=== PATIENT | male | born 1945 | race Caucasian/White ===

== ENCOUNTER 2016-07-31 14:09 | Emergency (ER) | payer MEDICARE ==
[2016-07-31 14:50] VITALS: BP 115/69
--- NOTE | 2016-07-31 15:06 | RAD ---
INDICATION: Left fifth finger injury. TECHNIQUE: 3 views of the left fifth finger were obtained. FINDINGS: The middle phalanx is subluxed posterior and medial relative to the proximal phalanx. No acute fracture is seen. There is an old healed boxer's fracture of the fifth metacarpal. IMPRESSION: SUBLUXATION OF THE PROXIMAL INTERPHALANGEAL JOINT.
--- NOTE | 2016-07-31 16:34 | RAD ---
INDICATION: Right fifth finger subluxation status post reduction. COMPARISON: Comparison is made with the prereduction films of the same day. TECHNIQUE: 3 views of the right fifth finger were obtained. FINDINGS: The bones are in normal alignment. There has been interval reduction of the previously noted subluxation of the proximal interphalangeal joint. No acute fracture is seen. There is an old healed boxer's fracture of the fifth metacarpal. 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 IMPRESSION: STATUS POST EXTERNAL REDUCTION. THE BONES ARE IN NORMAL ALIGNMENT.
--- NOTE | 2016-07-31 18:39 | ED ---
Elmer Pittman Alok, scribed for Dharmesh Denson MD on 07/31/16 at 1436 . Adult Trauma - HPI Summary HPI Summary: 71M presents to the ED BIBA following fall off of ladder. Pt was reportedly on a ladder indoors when he lost his balance reportedly falling 3 feet to the ground. Pt states he landed on his back and hit the back of his head on a plastic surface. Pt notes right elbow pain and right 5th finger pain. Pt denies neck pain or LOC. - History of Current Complaint Chief Complaint: EDTraumaMultiple Stated Complaint: FALL 12 FEET Time Seen by Provider: 07/31/16 14:25 Hx Obtained From: Patient Mechanism of Injury: Fall Ambulatory at the Scene: Yes Loss of Consciousness: no loss of consciousness Onset/Duration: Traumatic, Still Present Onset of Pain: Immediate Onset Severity: Moderate Current Severity: Moderate Pain Intensity: 7 Pain Scale Used: 0-10 Numeric Location: Head, Extremities Aggravating Factor(s): Nothing Alleviating Factor(s): Nothing Associated Signs & Symptoms: Negative: Loss of Consciousness - Allergy/Home Medications Allergies/Adverse Reactions: Allergies Allergy/AdvReac Type Severity Reaction Status Date / Time No Known Allergies Allergy Verified 04/12/12 07:56 PMH/Surg Hx/FS Hx/Imm Hx Endocrine/Hematology History: Denies: Hx Anticoagulant Therapy, Hx Diabetes, Hx Thyroid Disease Cardiovascular History: Denies: Hx Hypertension, Hx Pacemaker/ICD Respiratory History: Denies: Hx Asthma, Hx Chronic Obstructive Pulmonary Disease (COPD) History: Denies: Hx Renal Disease Neurological History: Denies: Hx Dementia, Hx Seizures Psychiatric History: Denies: Hx Substance Abuse - Immunization History Date of Tetanus Vaccine: 2006 Infectious Disease History: No Infectious Disease History: Denies: Hx Hepatitis, Hx Human Immunodeficiency Virus (HIV), Traveled Outside the [place] in Last 30 Days - Family History Known Family History: Negative: Cardiac Disease, Hypertension, Diabetes - Social History Occupation: Employed Full-time Lives: With Family Substance Use Type: Reports: None Review of Systems Negative: Fever Positive: Other - right elbow and right 5th finger pain. Negative: Neck pain All Other Systems Reviewed And Are Negative: Yes Physical Exam Triage Information Reviewed: Yes Vital Signs On Initial Exam: Initial Vitals Temp Pulse Resp BP Pulse Ox 97.4 F 59 18 117/65 100 07/31/16 14:15 07/31/16 14:15 07/31/16 14:15 07/31/16 14:15 07/31/16 14:15 Vital Signs Reviewed: Yes Appearance: Positive: Well-Appearing, No Pain Distress Skin: Positive: Warm, Skin Color Reflects Adequate Perfusion, Dry Head/Face: Positive: Normal Head/Face Inspection Eyes: Positive: Normal ENT: Positive: Normal ENT inspection Neck: Positive: Supple, Nontender Respiratory/Lung Sounds: Positive: Clear to Auscultation, Breath Sounds Present Cardiovascular: Positive: RRR Abdomen Description: Positive: Nontender, Soft Bowel Sounds: Positive: Present Musculoskeletal: Positive: Other - right hand 5th finger PIP dislocation with valve varus deformity Neurological: Positive: Normal Psychiatric: Positive: Normal, Affect/Mood Appropriate Diagnostics - Vital Signs Vital Signs Temp Pulse Resp BP Pulse Ox 07/31/16 14:18 97.8 F 59 17 117/65 100 07/31/16 14:15 97.4 F 59 18 117/65 100 - Laboratory Lab Statement: Any lab studies that have been ordered have been reviewed, and results considered in the medical decision making process. - Radiology Finger XRAY Xray Interpretation: Positive (See Comments) - IMPRESSION: SUBLUXATION OF THE PROXIMAL INTERPHALANGEAL JOINT. Radiology Interpretation Completed By: Radiologist Finger XRAY (Post Reduction) Xray Interpretation: Positive (See Comments) - IMPRESSION: STATUS POST EXTERNAL REDUCTION. THE BONES ARE IN NORMAL ALIGNMENT. Radiology Interpretation Completed By: Radiologist Adult Trauma Course/Dx - Course Course Of Treatment: Mr. Donis fell off a ladder he was using to nail on a twelve foot ceiling. He sat hard and hit his right hadn dislocating his 5th finger. He took one look at it and got pale and diaphoretic. His W/U here revealed only some minor laceerations and the PIP dislocation without fracture of his right 5th finger. He was digitally blocked with 25% bupivicaine (2 cc's ) and the finger was reduced easily after anesthesia. He was domingo taped and D/ C'd in stable condition. - Diagnoses Provider Diagnoses: Dislocation, finger closed, Abrasions of multiple sites Discharge - Discharge Plan Condition: Stable Disposition: HOME Patient Education Materials: Finger Dislocation (ED) Referrals: Mina Grant MD [Primary Care Provider] - The documentation as recorded by the scribElmer white Alok accurately reflects the service I personally performed and the decisions made by me, Dharmesh Denson MD.
== END 2016-07-31 17:00 | disposition home or self-care (01) ==
LOC: ED 14:09
DX: S63.259A Unspecified dislocation of unspecified finger, initial encounter (principal); S50.311A Abrasion of right elbow, initial encounter; W11.XXXA Fall on and from ladder, initial encounter; Y93.9 Activity, unspecified; Y92.9 Unspecified place or not applicable; Y99.9 Unspecified external cause status
CPT/HCPCS: 73140; 99283

== ENCOUNTER 2018-07-23 01:31 | Inpatient (IN) | payer MEDICARE ==
[2018-07-23] MEDS ORDERED: Diltiazem IV push/loading dose 5 MG/ML 5 ML vial (25 mg) IV SLOW PU ONE ×2 (02:04→05:01)
[2018-07-23] MEDS ORDERED: NS 0.9% 1000 ML** 1,000 ML IV ONE (02:04)
[2018-07-23] MEDS ORDERED: Aspirin 81 mg CHEW TAB* 81 MG TAB.CHEW PO ONE (02:04)
--- NOTE | 2018-07-23 02:09 | ED ---
HPI Cardiac - HPI Summary HPI Summary: Patient is a 73 y/o M presenting to ED with complaints of palpitations. Palpitations are characterized as "racing" and he reports that palpitations have been present intermittently for the past two weeks. He notes some dizziness and SOB with palpitations. He also states that he has been getting panic attacks at night, stating that when he lies down it feels like something is "choking my throat". Patient notes a few days ago he became SOB and experienced palpations while running and that he was not able to run more than 1 /4 of a mile. He states that he runs around 4 miles regularly. He denies any daily medications, alcohol and substances usage. Patient is a non-smoker. No pain at present. On triage, pain is denied, nothing is noted to aggravate/ alleviate Sx. Home medications and allergies are reviewed. - History of Current Complaint Stated Complaint: RAPID HR PER PT Hx Obtained From: Patient Onset/Duration: Started Weeks Ago - a couple weeks ago Timing: Intermittent - a couple weeks ago Current Severity: None - pain denied Pain Intensity: 0 Pain Scale Used: 0-10 Numeric Character: Fast - "racing" Aggravating Factor(s): Nothing Alleviating Factor(s): Nothing Associated Signs and Symptoms: Positive: Dizziness, Shortness of Breath - Allergy/Home Medications Allergies/Adverse Reactions: Allergies Allergy/AdvReac Type Severity Reaction Status Date / Time No Known Allergies Allergy Verified 07/23/18 01:34 Home Medications: Home Medications Ciprofloxacin TAB* [Cipro 500 MG TAB*] 1 tab PO BID 07/23/18 [History Confirmed 07/23/18] PMH/Surg Hx/FS Hx/Imm Hx Endocrine/Hematology History: Denies: Hx Anticoagulant Therapy, Hx Diabetes, Hx Thyroid Disease Cardiovascular History: Denies: Hx Hypertension, Hx Pacemaker/ICD Respiratory History: Denies: Hx Asthma, Hx Chronic Obstructive Pulmonary Disease (COPD) History: Denies: Hx Renal Disease Neurological History: Denies: Hx Dementia, Hx Seizures Psychiatric History: Denies: Hx Substance Abuse - Immunization History Date of Tetanus Vaccine: 2006 Infectious Disease History: No Infectious Disease History: Denies: Hx Hepatitis, Hx Human Immunodeficiency Virus (HIV), Traveled Outside the [place] in Last 30 Days - Family History Known Family History: Negative: Cardiac Disease, Hypertension, Diabetes - Social History Alcohol Use: Occasionally Substance Use Type: Reports: None Smoking Status (MU): Former Smoker Review of Systems Constitutional: Other - positive - dizziness Positive: Palpitations Positive: Shortness Of Breath All Other Systems Reviewed And Are Negative: Yes Physical Exam - Summary Physical Exam Summary: VITAL SIGNS: Reviewed. GENERAL: Patient is a well-developed and nourished male who is lying comfortable in the stretcher. Patient is not in any acute respiratory distress. HEAD AND FACE: No signs of trauma. No ecchymosis, hematomas or skull depressions. No sinus tenderness. EYES: PERRLA, EOMI x 2, No injected conjunctiva, no nystagmus. EARS: Hearing grossly intact. Ear canals and tympanic membranes are within normal limits. MOUTH: Oropharynx within normal limits. NECK: Supple, trachea is midline, no adenopathy, no JVD, no carotid bruit, no c- spine tenderness, neck with full ROM CHEST: Symmetric, no tenderness at palpation LUNGS: Clear to auscultation bilaterally. No wheezing or crackles. CVS: irregularly tachycardic, S1 and S2 present, no murmurs or gallops appreciated. ABDOMEN: Soft, non-tender. No signs of distention. No rebound no guarding, and no masses palpated. Bowel sounds are normal. EXTREMITIES: FROM in all major joints, no edema, no cyanosis or clubbing. NEURO: Alert and oriented x 3. No acute neurological deficits. Speech is normal and follows commands. SKIN: Dry and warm Triage Information Reviewed: Yes Vital Signs On Initial Exam: Initial Vitals Temp Pulse Resp BP Pulse Ox 97.2 F 65 17 139/90 100 07/23/18 01:32 07/23/18 01:32 07/23/18 01:32 07/23/18 01:32 07/23/18 01:32 Vital Signs Reviewed: Yes Diagnostics - Vital Signs Vital Signs Temp Pulse Resp BP Pulse Ox 07/23/18 01:32 97.2 F 65 17 139/90 100 - Laboratory Result Diagrams: 07/23/18 02:13 07/23/18 02:13 Lab Statement: Any lab studies that have been ordered have been reviewed, and results considered in the medical decision making process. - Radiology CXR Radiology Interpretation Completed By: ED Physician Summary of Radiographic Findings: CXR: bilateral increased markings, pending official report. - CT CTA CHEST/THORAX CT Interpretation Completed By: Radiologist Summary of CT Findings: CTA CHEST/THORAXIMPRESSION: 1. No pulmonary emboli. 2. Groundglass centrilobular nodules with intralobular septal thickening,. particularly in the right upper lobe, which may be due to atypical pneumonia. 3. Small right pleural effusion. 4. Cardiomegaly with evidence of right cardiac dysfunction. THIS REPORT WAS REVIEWED BY DR. ZHENG. - EKG 0200 Cardiac Rate: Other Rate - afib with rate of 117 BPM EKG Rhythm: Atrial Fibrillation Summary of EKG Findings: EKG showed afib with rate of 117 BPM, ST wave inversion in inferior leads. Disposition - Course Course Of Treatment: Patient is a 73 y/o M presenting to ED with complaints of palpitations. Palpitations are characterized as "racing" and he reports that palpitations have been present intermittently for the past two weeks. He notes some dizziness and SOB with palpitations. He also states that he has been getting panic attacks at night, stating that when he lies down it feels like something is "choking my throat". Patient notes a few days ago he became SOB and experienced palpations while running and that he was not able to run more than 1/4 of a mile. He states that he runs around 4 miles regularly. He denies any daily medications, alcohol and substances usage. Patient is a non-smoker. No pain at present. On physical exam, patient is noted to be irregularly tachycardic. EKG showed afib with rate of 117 BPM, ST wave inversion in inferior leads. CXR: Bilateral increased markings. CTA CHEST/THORAXIMPRESSION: 1. No pulmonary emboli. 2. Groundglass centrilobular nodules with intralobular septal thickening,. particularly in the right upper lobe, which may be due to atypical pneumonia. 3. Small right pleural effusion. 4. Cardiomegaly with evidence of right cardiac dysfunction. Labs showed Hgb 13.4, Hct 40, MCV 95, MCH 32, INR 1.23, D-dimer 355, BUN 26, BUN/creatinine ratio 23, glucose 104, AST 141, ALT 181, trop 0.01, BNP 466, total protein 6.1. During ED course, patient received fluids, diltiazem 20 mg IV SLOW PU ED, ASA 324 mg PO ED. 0507 - Patient's case was discussed with Dr. Hylton, Dr. Hylton accepts for admission. - Diagnoses Provider Diagnoses: A-fib - Physician Notifications Discussed Care Of Patient With: Neena Hylton Time Discussed With Above Provider: 05:07 Instructed by Provider To: Other - 0507 - Patient's case was discussed with Dr. Hylton, Dr. Hylton accepts for admission. Discharge - Sign-Out/Discharge Documenting (check all that apply): Patient Departure - admit - Discharge Plan Condition: Good Disposition: ADMITTED TO [facility] Referrals: Alisha Peace MD [Primary Care Provider] - - Attestation Statements Document Initiated by Scribe: Yes Documenting Scribe: YARI VANN Provider For Whom Scribe is Documenting (Include Credential): DAYANARA ZHENG MD Scribe Attestation: YARI Pittman, scribed for DAYANARA ZHENG MD on 07/23/18 at 0512. Status of Scribe Document: Ready
[2018-07-23 02:21] LABS: ABS Eosinophils 0.1 10^3/ul (0-0.6); ABS Lymphocytes 1.2 10^3/ul (1.0-4.8); ABS Monocytes 0.3 10^3/ul (0-0.8); ABS Neutrophils 3.1 10^3/ul (1.5-7.7); Hematocrit 40 % (42-52); Hemoglobin 13.4 g/dL (14.0-18.0); Lymphocyte % 24.9 %; Mean Corpuscular HGB Conc 34 g/dL (31-36); Mean Corpuscular Hemoglobin 32 pg (27-31); Mean Corpuscular Volume 95 fL (80-94); Mean Platelet Volume 9.2 fL (7.4-10.4); Platelet Count 175 10^3/uL (150-450); Red Cell Distribution Width 14 % (10-15); White Blood Count 4.7 10^3/uL (3.5-10.8)
[2018-07-23 02:29] LABS: Activated Partial Thrombo Time 34.9 seconds (26.0-38.0); INR 1.23 (0.82-1.09)
[2018-07-23 02:37] LABS: Albumin 3.8 g/dL (3.2-5.2); Albumin/Globulin Ratio 1.7 (1-3); EGFR African American 77.2 (>60); EGFR Non-African American 63.8 (>60); Globulin 2.3 g/dL (2-4); Magnesium 2.1 mg/dL (1.9-2.7); Potassium 4.7 mmol/L (3.5-5.0); Total Bilirubin 0.7 mg/dL (0.2-1.0); Total Protein 6.1 g/dL (6.4-8.9)
[2018-07-23 02:39] LABS: Troponin I 0.01 ng/mL (<0.04)
[2018-07-23] MEDS ORDERED: Iodixanol* (CONTRAST) 320 MG/ML 100 ML SDV IV ONE (02:51)
[2018-07-23 03:16] LABS: TSH (Thyroid Stimulating Horm) 3.99 mcIU/mL (0.34-5.60)
[2018-07-23] MEDS ORDERED: Acetaminophen TAB* 325 MG PO PRN (05:05)
[2018-07-23] MEDS ORDERED: Furosemide IV* 10 MG/ML VIAL (40 MG) IV ONE (05:09)
[2018-07-23] MEDS ORDERED: Metoprolol Tartrate IV* 1 MG/ML 5 ML VIAL IV PRN (05:10)
[2018-07-23] MEDS ORDERED: Ondansetron INJ* 2 MG/ML VIAL IV PRN (05:11)
[2018-07-23 05:22] LABS: HDL Cholesterol 44.3 mg/dL
[2018-07-23 05:47] LABS: Folate 13.79 ng/mL (>3.99)
[2018-07-23] MEDS ORDERED: Enoxaparin(*) 80 MG/0.8 ML SYR SUBCUT SCH (06:00)
[2018-07-23] MEDS: Diltiazem TAB* 30 MG PO SCH ×3 (06:40→17:27)
--- NOTE | 2018-07-23 09:24 | HP ---
HISTORY AND PHYSICAL: DATE OF ADMISSION: 07/23/18 PRIMARY CARE PROVIDER: Dr. Alisha Peace. EKG TECH: Dorene Donis, patient's . CHIEF COMPLAINT: Palpitations. CODE STATUS: DNR. SOURCE OF INFORMATION: HPI is obtained from the patient. He is an excellent historian. HISTORY OF PRESENT ILLNESS: This is a 73-year-old male with a past medical history of prostate cancer, status post prostatectomy; distant local melanoma, status post excision who, presents with complaint of palpitations over 2 weeks. Patient reports that he has had this sensation of his heart is racing intermittently for 2 weeks. It has been accompanied with shortness of breath and dizziness. They come and go. These episodes then last several minutes, but he is able to go about his day and do his activities of daily living. Over the last 7 days, he has had worsening sensation of shortness of breath, particularly when lying flat and has had several instances of orthopnea and paroxysmal nocturnal dyspnea where he wakes from sleep gasping for breath. Because of these persistent symptoms that did not seem to angel with any maneuvers, patient decided to present to the emergency room. At baseline, patient is quite healthy and is able to run 4 miles a day and he reports that for the last 2 weeks, he has been unable to run more than a quarter of a mile secondary to shortness of breath. He denies any josue chest pain during these events and has no other associated symptoms. No syncope and no dizziness. EMERGENCY ROOM COURSE: Vital signs on arrival, blood pressure of 139/90, pulse rate 70, sinus initially, temperature 97.2, respiratory rate 17, satting 100% on room air. Once in the emergency room and placed on the monitor, he had tachycardia to the one teens and an EKG showed atrial fibrillation with ventricular rate with T- wave inversions in 2, 3. Labs were drawn, which showed macrocytosis without anemia and elevated D-dimer of 355, elevated AST and ALT and a BNP of 466. A chest x-ray showed prominent vasculature bilaterally. A CTA was also completed to rule out pulmonary embolism, which by wet read was negative, although official report is still pending at the time of dictation. In the emergency room, he received diltiazem 20 mg with good effect , aspirin 324 and 1 L of IV fluid bolus. Because of these persistent symptoms of new AFib, the hospitalist team was asked to evaluate and admit this patient for further workup. PAST MEDICAL HISTORY: 1. Prostate cancer, status post prostatectomy. 2. Distant history of melanoma, status post excision. PAST SURGICAL HISTORY: 1. Status post prostatectomy. 2. Bilateral rotator cuff repair. 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 He lives with his . Tobacco: He is a current oral tobacco user with dips and has been for 20 years. Alcohol: Has abstained for the last 15 years. In the past with distant alcohol use disorder. Illicits : Never. FAMILY HISTORY: Positive for father who had prostate cancer and mother who is healthy. ALLERGIES: None. MEDICATIONS: None. REVIEW OF SYSTEMS: Constitutional: Negative for fever or chills. HEENT: Negative for vision changes, headaches, or sore throat. Cardiovascular: Positive for palpitations, orthopnea, or paroxysmal nocturnal dyspnea and negative for chest pain. Respiratory: Positive for shortness of breath. Negative for cough, pleuritic chest pain. GI: Negative for nausea, vomiting, diarrhea, or abdominal pain. : Negative for dysuria, hematuria. Musculoskeletal: Negative for myalgias, arthralgias or weakness. Skin: Negative for rashes or lesions. Neurologic: Negative for focal weakness or numbness. Psychiatric: Negative for anxiety or depression. Endocrine: Negative for polyuria, polydipsia. Heme: Negative for easy bruising, bleeding or lymph adenopathy. PHYSICAL EXAMINATION GENERAL APPEARANCE: This is a well-appearing pleasant man in no acute distress , sitting up in a stretcher. VITAL SIGNS: At the time of physical exam, heart rate 115 in atrial fibrillation, blood pressure is 136/84, respiratory rate is 15, satting 100% on room air. HEENT: Pupils are equal and reactive. Extraocular muscles are intact. Sclerae are anicteric. Mouth has moist mucous membranes. NECK: Supple with no supraclavicular or cervical lymphadenopathy. RESPIRATORY: Patient has mild crackles in right lung base, but otherwise clear to auscultation. CARDIAC: Irregularly irregular with no murmur, rub, or gallop. He has mildly elevated JVD at 6 cm. ABDOMEN: Belly is soft, nontender, nondistended with normoactive bowel sounds. SKIN: Without rashes or lesions. MUSCULOSKELETAL: He moves all 4 extremities without pain. EXTREMITIES: He has trace pitting edema in bilateral lower extremities and 2+ pulses and bilateral lower extremity DPs. NEURO: Cranial nerves II through XII are intact. He has no focal deficits. He is A and O x4. LABORATORY DATA: White blood cell count 4.7, hemoglobin 13.4, hematocrit 40, platelets 175. INR 1.23. D-dimer is 355. CMP: Sodium 141, potassium 4.7, chloride 110, carbon dioxide 27, BUN 26, creatinine 1.13, glucose 104, magnesium 2.1, total bili is 0.7, AST 141, ALT 181, alk phos 58. Troponin 0.01. BNP 466. TSH 3.99. IMAGING: Includes a chest x-ray which shows a bilateral prominent vasculature and increased interstitial markings. EKG that shows atrial fibrillation with ventricular rate 115, T-wave inversions in the 2 and 3. CTA of chest is pending , but per wet read, no acute pulmonary embolism. Imaging, labs and EKG were reviewed by myself. ASSESSMENT AND PLAN: This is a 73-year-old man with past medical history of distant prostate cancer, who presents with history of subacute palpitations and dyspnea on exertion and was found to have new onset of atrial fibrillation and signs of volume overload concerning for new onset heart failure. 1. Atrial fibrillation. The patient has been in and out of this rhythm for 2 weeks. His MELANIA-VASc score is 1. He has no known risk factors. Pulmonary embolism has been ruled out. He would consider a sleep apnea screen. We will consult cardiology to discuss ultimate management of rate, rhythm control or other options such as cardioversion moving forward. As above, MELANIA-VASc score is 1 and long-term anticoagulation is a shared decision making process with patient and primary care provider. I will therapeutically anticoagulate patient one time with Lovenox and ultimate decision on long-term anticoagulation can be made in the course of this hospitalization. 2. Volume overload Patient appears to have volume overload and possibly this is tachycardia mediated mild heart failure. An echocardiogram has been ordered. We would consider stress test in this patient if had more convincing risk factors and per Cardiology decision. We will diurese with Lasix 40 mg IV x1 now and can diurese as tolerated. 3. Elevated liver function testing. Has a non-cholestatic pattern, it is possibly congestive hepatopathy from heart failure. We will send off hepatitis panel as well as a liver ultrasound. 4. Mild anemia with macrocytosis, folate and B12 were ordered as part of this workup. 5. Distant prostate cancer. No active issues. 6. FEN. NPO for liver ultrasound and can be upgraded to heart-healthy diet. 7. DVT prophylaxis. Patient is therapeutically anticoagulated with Lovenox. Decision to continue therapeutic anticoagulation versus prophylactic can be made over the course of his hospital stay. 8. Code status is DNR. MOLST completed at the bedside. 9. Disposition. Patient is stable for admission to [address] [place] [address] for telemetry. TIME SPENT: Forty five minutes was spent in the planning of this admission with over half of that spent directly at the bedside with the patient providing direct patient care. Plan of care discussed with patient and family, they had no further questions. [id number]/CPS #: [id number]
--- NOTE | 2018-07-23 11:05 | CONS ---
CC: [facility] * CARDIOLOGY CONSULTATION: DATE OF CONSULT: 07/23/18 INDICATION FOR CONSULTATION: Atrial fibrillation. HISTORY OF PRESENT ILLNESS: The patient is a 73-year-old gentleman with little past medical history, who came to the emergency room because of palpitations and shortness of breath. The patient states that for the past 2 weeks or so, he has been noticing an increase in palpitations and episodes of heart racing. The patient states for the last 3 nights, it has been difficult for him to lie flat, he has been sitting up in a chair or pacing because of his shortness of breath. He denies any chest pain. He denies lightheadedness, dizziness, or syncope. The patient is very physically active. He runs on a regular basis. He has been unable to run for the last four days or so. The patient states he has a history of "murmur" and has had palpitations most of his life. Generally, they are brief and do not interfere with his lifestyle. The patient denies any lower extremity edema. He does have orthopnea. PAST MEDICAL HISTORY: Significant for prostate enlargement, arthritis, and melanoma. PAST SURGICAL HISTORY: 1. Bilateral shoulder rotator cuff surgeries. 2. Melanoma surgery. 3. Prostatectomy. OUTPATIENT MEDICATION: Ciprofloxacin. ALLERGIES: No known drug allergies. FAMILY HISTORY: No family history of early coronary artery disease or cardiac arrhythmias. SOCIAL HISTORY: He is retired. He is . He is very physically active. He denies tobacco or alcohol use. REVIEW OF SYSTEMS: Negative for fevers and chills. Negative for changes in bowel or bladder habits. Negative for change in weight. Other 12-point review is unremarkable. PHYSICAL EXAM: Height is 6 feet, weight is 187 pounds. Temperature 98, heart rate 84, blood pressure 104/78, respiratory rate is 20, oxygen saturation 95% on room air. Sclerae anicteric. Oropharynx is pink without erythema. Carotids are 2+ without bruits. JVD is normal. Thyroid is normal. Cardiac Exam: S1, S2, irregular. No murmurs, rubs, or gallops. PMI is normal. Lungs are clear to auscultation bilaterally. No dullness to percussion. Abdomen is soft, nontender, and nondistended with normoactive bowel sounds. Extremities show no edema. He has 2+ pulses throughout. The patient is awake, alert, and oriented. He moves all 4 extremities equally. DIAGNOSTIC STUDIES/LAB DATA: Chemistries within normal limits. BUN 26, creatinine 1.1. AST and ALT are slightly elevated at 141 and 181. BNP is 416. Total cholesterol 131. LDL cholesterol 75. TSH 3.99. CBC within normal limits. EKG shows atrial fibrillation with LVH. IMPRESSION: This is a 73-year-old gentleman with little past medical history, who came to the hospital because of increasing shortness of breath and palpitations. The patient was found to be in atrial fibrillation. The patient was started on enoxaparin 80 mg twice a day and a Cardizem drip. The patient's CT of the chest showed no evidence of pulmonary embolism. The patient has slightly elevated transaminase levels, this could be due to passive congestion from mild congestive heart failure. The patient was given a diuretic in the emergency room and had a significant diuresis. PLAN/RECOMMENDATIONS: For now my recommendations, continue on his current medications. I did talk to the patient at length regarding treatment of his atrial fibrillation, talked about anticoagulation, antiarrhythmic medications, potential cardioversion, and ablative therapy. For now, the plan is to continue his anticoagulation. The patient is already n.p.o. We will schedule for a transesophageal echocardiogram today and potential cardioversion back to normal sinus rhythm. After he is back in normal sinus rhythm, the patient will be started on oral anticoagulants and antiarrhythmics. I will probably send him out on Multaq. The patient will be seen in follow up. Further recommendations pending results of his transesophageal echocardiogram and cardioversion. [id number]/[facility] #: [id number] QUE
[2018-07-23 13:19] LABS: Hepatitis B Surface Antigen Negative (Negative)
[2018-07-23 13:36] LABS: Hepatitis C Antibody Negative (Negative)
[2018-07-23] MEDS ORDERED: fentaNYL* 50 MCG/ML 2 ML VIAL (100 MCG VIAL) ONE (14:36)
[2018-07-23] MEDS ORDERED: Naloxone* 0.4 MG/ML 1 ML VIAL ONE (14:36)
[2018-07-23] MEDS ORDERED: Flumazenil* 0.1 MG/ML 5 ML MDV ONE (14:36)
[2018-07-23] MEDS ORDERED: Lidocaine 2% VISCOUS* 15 ML UDC ONE (14:36)
[2018-07-23] MEDS ORDERED: Midazolam* 1 MG/ML 5 ML VIAL (5 MG) ONE (14:36)
--- NOTE | 2018-07-23 15:30 | CARD ---
CC: Dr. Peace, [facility] * CARDIOVERSION REPORT: DATE OF PROCEDURE: 07/23/18 - ROOM #432 PROCEDURE: Cardioversion. INDICATION: Atrial fibrillation. The patient is a 73-year-old gentleman with very little past medical history, who presented with shortness of breath and palpitations. He was found to be in atrial fibrillation. The patient had just undergone a transesophageal echocardiogram demonstrating normal LV size and systolic function. No evidence of thrombus in the left atrial appendage. Cardioversion was recommended. DESCRIPTION OF PROCEDURE: The patient was given an additional 2 mg of Versed for conscious sedation. The patient was cardioverted with 150 joules of synchronized biphasic energy. The patient converted to normal sinus rhythm, which lasted about 2 minutes and then back to atrial fibrillation. Repeat cardioversion was recommended. The cardioversion normal sinus rhythm at that time. Further recommendations pending his hospital course. Patient maintained NSR Patient will be discharged on Eliquis, Multaq and Metoprolol. Follow up in 2-3 weeks [id number]/[facility] #: [id number] QUE
[2018-07-23 16:17] VITALS: BP 102/71
--- NOTE | 2018-07-23 17:10 | TEE ---
*[facility]* [place] [address] Fax #: [phone] Transesophageal Echocardiogram Patient: Jewels, Height: 72 in / William Henderson 182.9 cm : 1945 Weight: 186.6 lb / Study Date: 07/23/2018 84.8 kg Age: 73 BP: 134 / 89 Gender: M BMI/BSA: 25.4 HR: 145 bpm kg/m^2 / 2.07 m^2 *Surgical Coder: * Denise Dietz [facility] *Referring Physician: * Radhames Marie MD *Reading Physician: * Radhames Marie MD Indications: Atrial Fibrillation. History: Prostate cancer, oral tobacco. Conclusions Summary: 1. Left ventricle: The cavity size is normal. Wall thickness is mildly to moderately increased. Systolic function is normal. The estimated ejection fraction is 55-60%. 2. Right ventricle: Systolic function is normal. 3. Left atrium: There is no evidence of a thrombus in the atrial cavity or appendage. 4. Atrial septum: A PFO is not demonstrated by color Doppler or agitated saline contrast. 5. Mitral valve: Mild prolapse. There is mild to moderate regurgitation. 6. Aortic valve: There is no evidence of stenosis. There is trivial regurgitation. 7. Tricuspid valve: There is mild regurgitation. 8. Aortic arch: The aortic arch has a focal area of plaque measuring 0.4cm x 0.5cm x 1.2cm. 9. Study data: No prior study is available for comparison. Study data: Diagnostic Transesophageal Echocardiogram Consent: The risks and benefits of the procedure, including alternatives were discussed with the patient and/or their health care consumer sales representative and written informed consent was obtained. Procedure: Initial setup: The patient was brought to the laboratory in the fasting state.Intravenous access was obtained. Surface ECG leads, heart rate, heart rhythm, blood pressure measurements, pulse oximetric signals, and mainstream end-tidal CO2 tracings were monitored throughout the procedure. Sedation. Moderate sedation was administered by nursing staff. History and physical as well as labs were reviewed. An oral bite block was inserted for protection of oral dentition. The patient was placed in the left lateral decubitus position. Topical anesthesia was obtained using viscous lidocaine. A transesophageal probe was inserted by the attending wire photo operator. Transesophageal echocardiography was performed, image quality was good, and all standard views were attempted within the limitations of patient tolerance and safety. Multiple 2D, color flow Doppler and spectral Doppler images were obtained. The transesophageal probe was removed. A bubble study was performed. Images 42-43 Location: Procedure room. Patient status: Inpatient. Patient room number: 432. No prior study is available for comparison. Study completion: The patient tolerated the procedure well. There were no complications. Administered medications: Midazolam, 4mg. Fentanyl, 50mcg. Findings Left ventricle: The cavity size is normal. Wall thickness is mildly to moderately increased. Systolic function is normal. The estimated ejection fraction is 55-60%. Wall motion is normal; there are no regional wall motion abnormalities. Left ventricular diastolic function parameters are indeterminate. Right ventricle: The cavity size is normal. Systolic function is normal. Left atrium: The atrium is normal in size. Emptying velocity is normal. There is no evidence of a thrombus in the atrial cavity or appendage. Right atrium: The atrium is normal in size. Atrial septum: A PFO is not demonstrated by color Doppler or agitated saline contrast. Mitral valve: The leaflets are normal thickness. Mild prolapse. There is no evidence of stenosis. There is mild to moderate regurgitation. Aortic valve: The annulus is mildly calcified. The valve is trileaflet. The leaflets are normal thickness. There is no evidence of stenosis. There is trivial regurgitation. Tricuspid valve: The leaflets are normal thickness. There is no evidence of stenosis. There is mild regurgitation. Pulmonic valve: The leaflets are normal thickness. There is no evidence of stenosis. There is trivial regurgitation. Aorta: Aortic root: The aortic root is upper normal in size. Ascending aorta: The ascending aorta is mildly dilated. Aortic arch: The aortic arch has a focal area of plaque measuring 0.4cm x 0.5cm x 1.2cm. Pulmonary arteries: The main pulmonary artery is normal-sized. Systemic veins: Inferior vena cava: Poorly visualized. Superior vena cava: The vessel is appears normal. Measurements Aortic valve Value Ref Aortic root Value Ref Karolina diam, ED 2.3 cm ---- Root diam 3.5 cm <4.2 Peak v, S 1.07 m/sec ---- Peak grad, S 5.0 mm Hg ---- Ascending aorta Value Ref AAo AP diam, S 3.7 cm ---- Mitral valve Value Ref Peak E 0.52 m/sec ---- Peak A 0.02 m/sec ---- Decel time 55 ms ---- Peak E/A ratio 21.8 ---- Legend: (L) and (H) iris values outside specified reference range. Prepared and electronically signed by Radhames Marie MD 07/23/2018 17:09
[2018-07-23] MEDS ORDERED: Dronedarone TAB* 400 MG PO SCH (21:00)
[2018-07-23] MEDS ORDERED: Apixaban* 5 MG TAB PO SCH (21:00)
--- NOTE | 2018-07-24 09:42 | DS ---
DISCHARGE SUMMARY: DATE OF ADMISSION: 07/23/18 DATE OF DISCHARGE: 07/23/18 ATTENDING PROVIDER: Neena Hylton MD. ATTENDING PHYSICIAN WHILE DATE ON DISCHARGE: Carlos Munroe MD. PRIMARY CARE PROVIDER: Dr. Alisha Peace. CONSULTING UTILITY OPERATOR YARN: Dr. Radahmes Marie. CHIEF COMPLAINT: Palpitations, shortness of breath, dyspnea on exertion. PRINCIPAL DIAGNOSIS: New-onset atrial fibrillation with rapid ventricular response; mild congestive heart failure, likely secondary to tachyarrhythmia. HISTORY OF PRESENT ILLNESS AND HOSPITAL COURSE: William Donis is a 73-year- old male with past medical history of prostate cancer; status post prostatectomy , local melanoma; status post excision who is otherwise in excellent health and near daily long distance runner. Please see H and P of Dr. Neena Hylton for full details, but briefly, he has intermittently noticed racing of his heart for 2 weeks accompanied by shortness of breath and dizziness. He had worse shortness of breath on lying down flat for the last 7 days consistent with orthopnea and paroxysmal nocturnal dyspnea. Upon presentation to the [facility] Emergency Room, he had an EKG showing atrial fibrillation with RVR. D-dimer was elevated at 355. His BNP was 466. CTA chest ruled out pulmonary embolism, shows small right pleural effusion, and ground-glass subpleural lung nodules with interlobular septal thickening, particularly in the right upper lobe, which may be due to atypical pneumonia. He was given IV diltiazem in the emergency room and then transitioned to oral diltiazem 30 q.6. He was also started on Lovenox 1 mg/kg q.12 and seen in consultation with Dr. Marie of cardiology who recommended TERRANCE with potential cardioversion. This occurred later in the afternoon and required 2 shocks, the first one did not maintain him in normal rhythm, but the second one did. He was recommended discharge home with new prescription for antiarrhythmic Multaq, low-dose beta bina, and Eliquis with close cardiology followup recommended. Additional evaluation included slight transaminase elevation with AST 141, ALT at 181. The T-bili and alk phos were normal. This was possibly some mild hepatic congestion secondary to mild heart failure (he was on room air during the admission and they gave 1 dose of 40 mg IV Lasix there). An acute hepatitis panel was sent and negative for hepatitis A IgM antibody, hepatitis B surface antigen, hepatitis B core IgM antibody, hepatitis C antibody, and a limited right upper quadrant ultrasound was also within normal limits. DISCHARGE MEDICATIONS: Include: 1. Apixaban 5 mg p.o. b.i.d. (new). 2. Dronedarone (Multaq) 40 mg p.o. b.i.d. (new). 3. Metoprolol succinate 25 mg p.o. daily (new). FOLLOWUP: The patient is to follow up with Dr. Radhames Marie in 1 to 2 weeks and should follow up with Dr. Alisha Peace within 1 to 2 weeks. DISCHARGE DIET: Heart healthy. DISPOSITION: Home. CONDITION: Improved. TIME SPENT ON DISCHARGE: 35 minutes. [id number]/[facility] #: [id number] QUE
== END 2018-07-23 18:10 | disposition home or self-care (01) | DRG 310 ==
LOC: ED 01:31 → MEDTELE 05:02
PROVIDERS: ADMIT Internal Medicine; ATTEND Internal Medicine
PROC: 5A2204Z Restoration of Cardiac Rhythm, Single (ICD-10-PCS; 2018-07-23)
PROC: B246ZZ4 Ultrasonography of Right and Left Heart, Transesophageal (ICD-10-PCS; principal; 2018-07-23 13:00)
DX: I48.91 Unspecified atrial fibrillation (principal); I50.9 Heart failure, unspecified; R00.0 Tachycardia, unspecified; R74.0 Nonspecific elevation of levels of transaminase and lactic acid dehydrogenase [LDH]; Z66 Do not resuscitate; D75.89 Other specified diseases of blood and blood-forming organs; F17.200 Nicotine dependence, unspecified, uncomplicated; R79.89 Other specified abnormal findings of blood chemistry; R01.1 Cardiac murmur, unspecified; M19.90 Unspecified osteoarthritis, unspecified site; I08.1 Rheumatic disorders of both mitral and tricuspid valves; Z79.899 Other long term (current) drug therapy; Z85.46 Personal history of malignant neoplasm of prostate; Z85.820 Personal history of malignant melanoma of skin; Z80.42 Family history of malignant neoplasm of prostate
CPT/HCPCS: 36415; 71045; 71275; 76705; 80053; 80061; 80074; 82607; 82746; 83036; 83735; 83880; 84443; 84484; 85025; 85379; 85610; 85730; 93005; 93312; 93325; 99156; 99157; 99284; A9270-GY; J1650; J1940; J2250; J2310; J3010; Q9967